=== PATIENT | female | born 1990 | race African-American/Black ===

== ENCOUNTER 2019-05-20 20:44 | Emergency (ER) | payer OTHER ==
[~2019-05-20] VITALS: Ht 162.6 cm; Wt 61.2 kg
[2019-05-20] MEDS ORDERED: KETOROLAC TROMETHAMINE 60 MG/2 ML VIAL IM ONE (21:30)
[2019-05-20] MEDS ORDERED: KETOROLAC TROMETHAMINE 60 MG/2 ML VIAL ONE (21:34)
== END 2019-05-20 21:56 | disposition home or self-care (01) ==
LOC: FSED 20:44
DX: R10.2 Pelvic and perineal pain (principal); N80.0 Endometriosis of uterus
CPT/HCPCS: 81003; 81025; 99282; J1885